=== PATIENT | female | born 1980 | race Caucasian/White ===

== ENCOUNTER 2017-08-04 11:12 | Emergency (ER) | payer SELFPAY ==
[~2017-08-04] VITALS: Ht 157.5 cm; Wt 54.4 kg
[2017-08-04 11:47] LABS: BASOPHIL % 0.7 % (0-2)
[2017-08-04 11:48] LABS: PLATELET COUNT 401 x10^3mcL (130-400); RED CELL DISTRIBUTION WIDTH 14.7 % (11.5-14.5)
[2017-08-04 12:03] LABS: CALCIUM 8.8 mg/dL (8.5-10.1); CARBON DIOXIDE 32.3 mmol/L (21-32); CHLORIDE SERUM 94 mmol/L (98-107); CREATININE SERUM 0.7 mg/dL (0.6-1.0); GFR1 > 60 mL/min; GLUCOSE SERUM 106 mg/dL (74-106); POTASSIUM SERUM 4.4 mmol/L (3.5-5.1); SODIUM SERUM 137 mmol/L (136-145)
[2017-08-04 12:11] LABS: ALBUMIN 4.3 g/dL (3.4-5.0); ALKALINE PHOSPHATASE 60 U/L (46-116); ALT/SGPT 35 U/L (14-59); AST/SGOT 38 U/L (15-37); BILIRUBIN TOTAL 0.7 mg/dL (0.20-1.00)
[2017-08-04 12:16] LABS: TOTAL PROTEIN, SERUM 9.4 g/dL (6.4-8.2)
[2017-08-04 12:36] LABS: UA SPECIFIC GRAVITY <=1.005 (1.005-1.035); microscopic required? YES; urine erythrocyte 1+ (NEGATIVE)
[2017-08-04 12:47] LABS: AMPHETAMINE QUAL UR NONE DETECTED (NEG <=1000)
[2017-08-04 17:17] VITALS: BP 131/59
== END 2017-08-04 17:17 | disposition home or self-care (01) ==
LOC: ED 11:12
PROVIDERS: Emergency Medicine
DX: G93.40 Encephalopathy, unspecified (principal); F10.129 Alcohol abuse with intoxication, unspecified; Z88.0 Allergy status to penicillin; E07.9 Disorder of thyroid, unspecified
CPT/HCPCS: 36415; G0480; J7030; J7040; Q0092

== ENCOUNTER 2018-12-26 12:06 | Emergency (ER) | payer SELFPAY ==
[~2018-12-26] VITALS: Ht 162.6 cm; Wt 70.3 kg
[2018-12-26 12:16] VITALS: Ht 162.6 cm; Wt 70.3 kg
[2018-12-26 12:53] LABS: BASOPHIL % 0.5 % (0-2)
[2018-12-26 12:58] LABS: PLATELET COUNT 440 x10^3mcL (130-400)
[2018-12-26 13:19] LABS: CALCIUM 7.4 mg/dL (8.5-10.1); CARBON DIOXIDE 28.9 mmol/L (21-32); CHLORIDE SERUM 106 mmol/L (98-107); CREATININE SERUM 0.7 mg/dL (0.6-1.0); GFR1 > 60 mL/min; GLUCOSE SERUM 88 mg/dL (74-106); POTASSIUM SERUM 3.5 mmol/L (3.5-5.1); SODIUM SERUM 145 mmol/L (136-145)
[2018-12-26 13:24] LABS: ALKALINE PHOSPHATASE 42 U/L (46-116); ALT/SGPT 19 U/L (14-59); AST/SGOT 20 U/L (15-37); BILIRUBIN TOTAL 0.17 mg/dL (0.20-1.00); TOTAL PROTEIN, SERUM 6.7 g/dL (6.4-8.2)
[2018-12-26 13:28] LABS: ALBUMIN 3.3 g/dL (3.4-5.0)
[2018-12-26 14:19] LABS: AMPHETAMINE QUAL UR NONE DETECTED (See below)
[2018-12-26 17:17] VITALS: BP 111/66
== END 2018-12-26 17:17 | disposition home or self-care (01) ==
LOC: ED 12:06
PROVIDERS: Emergency Medicine
DX: G92 Toxic encephalopathy (principal); F10.129 Alcohol abuse with intoxication, unspecified; F32.9 Major depressive disorder, single episode, unspecified; Z88.0 Allergy status to penicillin
CPT/HCPCS: 36415; G0480